=== PATIENT | male | born 1935 | race Asian ===

== ENCOUNTER 2019-06-02 11:55 | Day surgery (SDC) | payer MEDICARE, BC ==
[2019-06-02] MEDS ORDERED: Acetaminophen 500 MG TAB PO SCH (13:00)
[2019-06-02] MEDS ORDERED: diphenhydrAMINE 25 MG CAP PO SCH (13:15)
[2019-06-02 16:19] VITALS: TEMP 97.5
[2019-06-02 16:25] VITALS: BP 165/72
[2019-06-02 17:23] LABS: #Eosinphils 0.2 thou/uL (0.0-0.7); #Lymphocytes 0.9 thou/uL (1.20-3.40); #Monocytes 0.5 thou/uL (0.11-0.59); #Neutrophils 3.6 thou/uL (1.40-6.50); %Basophils 0.6 % (0.0-1.0); %Eosinophils 3.1 % (0.0-10.0); %Lymphocytes 16.6 % (21.0-51.0); %Monocytes 9.9 % (0.0-10.0); %Neutrophils 69.8 % (42.0-75.0); Anisocytosis SLIGHT = 6-15 cells (100X) (0-5/hpf); Hemoglobin 7.8 g/dL (14.0-18.0); Hypochromia SLIGHT = 6-15 cells (100X) (0-5/hpf); MDiff Complete? YES; Mean Corpuscular HGB CONC 31.8 g/dL (32.0-36.0); Mean Corpuscular Hemoglobin 34.2 pg (27.0-31.0); Mean Platelet Volume 10.2 fL (7.4-10.4); Platelet Count 68 thou/uL (130-400); Platelet Morphology Comment Appears Decreased; Poikilocytosis SLIGHT = 6-15 cells (100X) (0-5/hpf); RBC Distribution Width 24.6 % (11.5-14.5); Red Blood Cell (RBC) Count 2.26 mill/uL (4.70-6.10); White Blood Cell (WBC) Count 5.2 thou/uL (4.8-10.8)
== END 2019-06-02 16:40 | disposition home or self-care (01) ==
LOC: ONC/OP 11:55
PROVIDERS: ATTEND Internal Medicine Hematology & Oncology
PROC: 30233N1 Transfusion of Nonautologous Red Blood Cells into Peripheral Vein, Percutaneous Approach (ICD-10-PCS; principal; 2019-06-02)
DX: D64.9 Anemia, unspecified (principal); D69.6 Thrombocytopenia, unspecified
CPT/HCPCS: 36430; 80053; 82248; 83615; 83883; 84100; 84165; 84550; 85025; 86850; 86900; 86901; P9016; Q0163

== ENCOUNTER 2019-06-10 09:46 | Observation (INO) | payer MEDICARE, BC ==
--- NOTE | 2019-06-10 10:50 | RAD ---
PORTABLE CHEST 1 VIEW: Date: 06/10/19 Time: 1025 hours HISTORY: Shortness of breath. FINDINGS/IMPRESSION: Comparison made with exam of 03/05/13. Right-sided Port-A-Cath is again seen. The heart is enlarged. The aorta is tortuous. There are bibasi lar opacities with accompanying pleural effusions. No pneumothoraces are noted. POS: OFF
[2019-06-10 11:59] LABS: #Eosinphils 0.1 thou/uL (0.0-0.7); #Lymphocytes 0.7 thou/uL (1.20-3.40); #Monocytes 0.4 thou/uL (0.11-0.59); #Neutrophils 4.5 thou/uL (1.40-6.50); %Basophils 0.2 % (0.0-1.0); %Eosinophils 1.6 % (0.0-10.0); %Lymphocytes 12.2 % (21.0-51.0); %Monocytes 7.6 % (0.0-10.0); %Neutrophils 78.4 % (42.0-75.0); Hemoglobin 8.1 g/dL (14.0-18.0); Mean Corpuscular HGB CONC 32.6 g/dL (32.0-36.0); Mean Corpuscular Hemoglobin 35.8 pg (27.0-31.0); Mean Platelet Volume 9.6 fL (7.4-10.4); Platelet Count 64 thou/uL (130-400); RBC Distribution Width 24.2 % (11.5-14.5); Red Blood Cell (RBC) Count 2.27 mill/uL (4.70-6.10); White Blood Cell (WBC) Count 5.8 thou/uL (4.8-10.8)
[2019-06-10 12:24] LABS: ALT (SGPT) Less than 7 U/L (8-55); AST (SGOT) 18 U/L (5-34); Albumin 3.5 g/dL (3.4-4.8); Alkaline Phosphatase 95 U/L (40-150); Anion Gap 15 mmol/L (10-20); BUN (Urea Nitrogen) 69 mg/dL (8.4-25.7); Bilirubin, Total 0.7 mg/dL (0.2-1.2); Calc. Creatinine Clearance 0 mL/min (70-130); Calcium 9.2 mg/dL (7.8-10.44); Carbon Dioxide 30 mmol/L (23-31); Chloride 96 mmol/L (98-107); Estimated GFR-MDRD 8; Globulin 2.5 g/dL (2.4-3.5); Glucose 112 mg/dL (83-110); Potassium 4.8 mmol/L (3.5-5.1); Sodium 136 mmol/L (136-145)
[2019-06-10 12:25] LABS: Anisocytosis MODERATE=16-30 cells (100X) (0-5/hpf); MDiff Complete? YES; Platelet Morphology Comment Appears Decreased; Polychromasia MODERATE = 3-4 cells (100X) (0-2/hpf); Schistocytes SLIGHT = 2-5 cells (100X) (0-1/hpf)
--- NOTE | 2019-06-10 13:09 | PDOC.FPRHP ---
- History of Present Illness Chief Complaint: Dyspnea History of Present Illness: Pt is a 83yo male w/ pmhx of ESRD and multiple myeloma who lives in assisted living at [facility] presented to the ED with new onset dyspnea/orthopnea. Pt and daughter in law reported that around 0400 this am he started to become short of breath while laying in bed. This continued to last through the morning , exacerbated by laying down and with any exertion. Both daughter and staff felt the pt's legs were more swollen then normal so they took him here for further evaluation. Pt denies experiencing any fever, chills, cough, or recent illness. His only other complaint at this time is feeling more tired. Pt's daughter in law, who is a physician, reports he has recently developed the "dwindles" over the past few months with a slightly decreased appetite, mood, and energy level. Nephrology physician is Dr. Melendez. Pt was supposed to get dialysis today (Sat,, Th-left AV fistula) but missed it due to being in the ED. Denies any recent complications with dialysis. Pt also has a history of multiple myeloma. A week ago he was transfused for a Hgb below 7, today his hgb was 8.1. Oncology physician is Dr. Stoll - Allergies/Adverse Reactions Allergies Allergy/AdvReac Type Severity Reaction Status Date / Time No Known Allergies Allergy Verified 06/10/19 16:25 - Home Medications Medication Instructions Recorded Confirmed Type Acyclovir 400 mg PO DAILY 06/10/19 06/10/19 History Amlodipine Besylate/Valsartan 1 tab PO HS 06/10/19 06/10/19 History [Amlodipine-Valsartan 10-320 mg] Aspirin [Marcela Chewable] 81 mg PO DAILY 06/10/19 06/10/19 History Calcium Carbonate [Tums] 500 mg PO BID-WM 06/10/19 06/10/19 History Carbidopa/Levodopa [Sinemet] 25 mg PO BID 06/10/19 06/10/19 History Carvedilol Phosphate [Coreg CR] 40 mg PO DAILY 06/10/19 06/10/19 History Cholecalciferol (Vitamin D3) 1,000 unit PO DAILY 06/10/19 06/10/19 History [Vitamin D] Finasteride [Proscar] 0.5 tab PO DAILY 06/10/19 06/10/19 History Rosuvastatin [Crestor] 10 mg PO DAILY 06/10/19 06/10/19 History Sevelamer HCl 800 mg PO DAILY 06/10/19 06/10/19 History Terazosin HCl 2 mg PO DAILY 06/10/19 06/10/19 History hydrALAZINE [Apresoline] 25 mg PO BID 06/10/19 06/10/19 History - History PMHx: MM in remission, ESRD on HD //Sun, HTN well controlled, BPH PSHx: L fistula, Mediport 2013, Partial colectomy, tonsillectomy FHx: No pertinent family history Social: Lives in assisted living with . Wheelchair dependent, requires assistance with transfers. No tobacco, alcohol, - Review of Systems General: reports: weight/appetite/sleep changes (daughter reports slightly decreased appetite over past few months), fatigue. denies: fever/chills Eyes: denies: vision changes ENT: denies: nasal congestion Respiratory: reports: shortness of breath. denies: cough, congestion Cardiovascular: reports: edema. denies: chest pain, palpitation Gastrointestinal: denies: nausea, vomiting, diarrhea, abdominal pain, GI bleeding Genitourinary: denies: incontinence, dysuria Musculoskeletal: denies: pain, arthritis/arthralgias Neurological: reports: weakness, other (denies dizziness) Psychological: reports: depression (daughter notes recent "dwindles" w/ mildly decreased mood) - Vital signs BP: [] HR: [] RR: [] Tmax: [] Pox: []% on [] Wt: [] - Physical Exam Constitutional: NAD -Constitutional: sleepy but easily arousible HEENT: normocephalic and atraumatic, PERRLA, conjunctiva clear, no scleral icterus Neck: supple, FROM, no JVD Chest: no lesions Heart: RRR, normal S1/S2 -Heart: 2/6 soft ejection murmur heard at mitral and tricuspid posts 2+ pitting edema bilaterally to LE Lungs: good air movement, no wheezing -Lungs: Diffuse fine crackles in all smith Abdomen: soft, non-tender, bowel sounds present Musculoskeletal: normal structure, normal tone, ROM grossly normal Neurological: no focal deficit, CN II-XII intact Skin: capillary refill <2 seconds, no jaundice -Skin: Senile purpura to upper and lower extremities Psychiatric: normal mood and affect, good judgment and insight, intact recent and remote memory FMR H&P: Results - Labs Result Diagrams: 06/10/19 10:56 06/10/19 10:56 Lab results: WBC 5.8 thou/uL (4.8-10.8) 06/10/19 10:56 Hgb 8.1 g/dL (14.0-18.0) L 06/10/19 10:56 Hct 24.9 % (42.0-52.0) L 06/10/19 10:56 MCV 110.0 fL (78.0-98.0) H 06/10/19 10:56 Plt Count 64 thou/uL (130-400) L 06/10/19 10:56 Neutrophils % 78.4 % (42.0-75.0) H 06/10/19 10:56 Sodium 136 mmol/L (136-145) 06/10/19 10:56 Potassium 4.8 mmol/L (3.5-5.1) 06/10/19 10:56 Chloride 96 mmol/L (98-107) L 06/10/19 10:56 Carbon Dioxide 30 mmol/L (23-31) 06/10/19 10:56 BUN 69 mg/dL (8.4-25.7) H 06/10/19 10:56 Creatinine 6.68 mg/dL (0.7-1.3) H 06/10/19 10:56 Glucose 112 mg/dL (83-110) H 06/10/19 10:56 Calcium 9.2 mg/dL (7.8-10.44) 06/10/19 10:56 Total Bilirubin 0.7 mg/dL (0.2-1.2) 06/10/19 10:56 AST 18 U/L (5-34) 06/10/19 10:56 ALT Less than 7 U/L (8-55) L 06/10/19 10:56 Alkaline Phosphatase 95 U/L (40-150) 06/10/19 10:56 B-Natriuretic Peptide 978.8 pg/mL (0-100) H 06/10/19 10:56 Serum Total Protein 6.0 g/dL (5.8-8.1) 06/10/19 10:56 Albumin 3.5 g/dL (3.4-4.8) 06/10/19 10:56 - EKG Interpretation EK lead EKG interpreted by Emergency Department Physician at time of study, 12 lead EKG shows normal sinus rhythm, Rate (beats per minute): 78, Interpretation : normal EKG, Conduction normal, ST segments normal, T waves normal, [place] normal , Clinical impression: Normal EKG. - Radiology Interpretation Chest x-ray Status: image reviewed by me, report reviewed by me FMR H&P: A/P - Problem List (1) End stage chronic kidney disease Current Visit: Yes Status: Acute Code(s): N18.6 - END STAGE RENAL DISEASE (2) Shortness of breath on exertion Current Visit: Yes Status: Acute Code(s): R06.02 - SHORTNESS OF BREATH (3) Anemia Current Visit: Yes Status: Acute Code(s): D64.9 - ANEMIA, UNSPECIFIED Qualifiers: Anemia type: due to chronic kidney disease Chronic kidney disease stage: on chronic dialysis Qualified Code(s): N18.6 - End stage renal disease; D63.1 - Anemia in chronic kidney disease; Z99.2 - Dependence on renal dialysis (4) Multiple myeloma Current Visit: Yes Status: Acute Code(s): C90.00 - MULTIPLE MYELOMA NOT HAVING ACHIEVED REMISSION Qualifiers: Multiple myeloma remission status: unspecified Qualified Code(s): C90.00 - Multiple myeloma not having achieved remission (5) BPH (benign prostatic hyperplasia) Current Visit: Yes Status: Acute Code(s): N40.0 - BENIGN PROSTATIC HYPERPLASIA WITHOUT LOWER URINRY TRACT SYMP Qualifiers: Lower urinary tract symptom detail: straining on urination (6) HTN (hypertension) Current Visit: Yes Status: Acute Code(s): I10 - ESSENTIAL (PRIMARY) HYPERTENSION - Plan Shortness of breath - exertional and orthopnea New onset for pt this morning No previous history of CHF, difficult to determine whether fluid overload is 2/ 2 to complication with dialysis vs cardiogenic in nature -BNP 978 and 2+ pitting edema in bilateral LE -Troponins negative x3 -Echo ordered -No diuresis due to pt ESRD and minimal ability to create urine -Labs and clinical history were not suggestive of infectious etiology End stage renal disease Dialysis was scheduled for today but missed due to ED visit Renal function panel with no electrolyte derangements -Sat,, dialysis pt through left AV fistula -Consulted Dr. Melendez, will perform inpt dialysis today, he feels this will likely help with pts fluid overload Multiple Myeloma -courtesy call to Dr. Stoll, oncology, by request of family, message was left at his office -pt is currently stable in treatment per daughter Anemia Likely 2/2 to ESRD, was tranfused 1 week ago due to hgb <7 -Hgb 8.1, will continue to trend -Epoetin ordered pr Dr. Melendez Hypertension -Will restart pt carvedilol, amlodipine-valsartan, and hydralazine BPH -restart home finasteride and terazosin Condition: Stable Code status: DNAR Fluids: None Diet: Renal - fluid restriction 1800 VTE: not indicated due to thrombocytopenia Dispo: Admit to tele obs following dialysis today, will continue assessment for new onset CHF FMR H&P: Upper Level - Pertinent history 83 yo M with PMH ESRD on HD //Sun, HTN, MM presents with SOB that began and has worsened since last night. Did not get dialysis today. Noted to sat 91% on RA when typically sats around 96%, per daughter in law. Does not require supplemental O2. Did not get dialyzed today. He reports feeling tired but denies current SOB in ED. Denies any pain. He did have blood transfusion last Sunday for anemia. Daughter in law notes he has had decreased appetite and mobility over the past several months. Now wheelchair dependent. - Pertinent findings General: Tired, NAD Heart: RRR, no murmur Lungs: decreased lung sounds lower lobes, mild crackles, no wheeze Ext: 1+ pitting edema BLE Labs: BNP 978 Hgb 8.1 Platelets 64 EKG: NSR, no ischemic changes CXR: enlarged heart, bibasilar opacities w/ pleural effusion - Plan Date/Time: 06/10/19 1309 Fluid overload without diagnosis of CHF - CXR and clinical picture consistent. No tachycardia or tachypnea. - Concern for CHF with BNP 978, will order echo. No prior echo found in chart. - Trop neg, no EKG changes - No documented hypoxia <90%, pt was placed on supplemental O2. Will wean O2 as tolerated - Al consulted for dialysis ESRD on HD //S - consult Dr. Melendez, his principal software engineer for dialysis management - continue home renvela Chronic anemia - s/p 1 unit prbc last week - stable at 8.1 today, continue to monitor Thrombocytopenia - Platelets 64 today, continue to monitor HTN - Continue home carvedilol, hydralazine, amlodipine-valsartan - Hydralazine is held prior to dialysis treatments HLD - Continue home crestor, aspirin 81mg BPH - Continue home finasteride Dementia - Continue home carbidopa-levodopa Multiple myeloma - Reportedly in remission - Will let Dr. Stoll know patient is hospitalized Code: DNR Ppx: will not give heparin for ppx considering thrombocytopenia Dispo: admit to telemetry for observation, expected stay <2 midnights IClair DO, have evaluated this patient and agree with findings/plan as outlined by web development intern resident. Pertinent changes/additions are listed here.
[2019-06-10 14:45] LABS: Troponin I Less than 0.010 ng/mL (< 0.028)
[2019-06-10] MEDS ORDERED: Acetaminophen 325 MG TAB PO PRN (15:42)
--- NOTE | 2019-06-10 17:28 | PDOC.EVN ---
Event Note - Event Note Event Note: Date/Time: 06/10/19 5560 I personally evaluated the patient and discussed the management with Dr. Handy I agree with the History, Examination, Assessment and Plan documented above with any addition or exceptions noted below - 83 yo male with h/o HTN, ESRD on HD, multiple myeloma, HLD presented with acute onset of SOB since last night. He was awakened from sleep by the SOB. Denies any CP, cough, fever/chills, URI symptoms. (+) fatigue, and decreased appetite over the last several months. Daughter in law also reports increased pedal edema today. No recent changes to diet or medications. No prior h/o CHF. PMH/PSH/Meds/SH reviewed and agree with resident's documentation. T97.2 P77 BP 176/74 RR16 Exam repeated by me and agree with resident's findings. Labs: WBC=5.8, H/H=8.1/24.9, Plt=64, Bm=008, K= 4.8, Cl=96, CO2=30, BUN/Cr=69/6.69, Yynk=756, PZE=343.8, CXR- b/l pleural effusions and cardiomegaly, trop I<0.010. A/P: 1) New onset dyspnea- will check echo; may be related to volume overload and being due for HD. 2) ESRD- nephrology consulted to coordinate HD. 3) HTN- resume home meds; continue to monitor, 4) Thrombocytopenia- at baseline; continue to monitor ; will avoid lovenox/heparin.
[2019-06-10] MEDS ORDERED: EPOETIN ALFA-EPBX (ESRD) 4,000 UNIT/ML VIAL SC SCH (18:00)
[2019-06-10 18:08] LABS: Troponin I Less than 0.010 ng/mL (< 0.028)
[2019-06-10 18:34] VITALS: BMI 24.0
--- NOTE | 2019-06-10 19:05 | CON ---
DATE OF CONSULTATION: 06/10/2019 HISTORY OF PRESENT ILLNESS: Mr. Valentin is an 83-year-old Welsh-Y[place]i with known history of ESRD and was admitted for generalized malaise and weakness. He was also found to be short of breath and chest x-ray suggested CHF. He was also undergoing leg edema at the same time. We are now consulted for emergent hemodialysis as well for his maintenance hemodialysis. REVIEW OF SYSTEMS: No chest pain. Positive for shortness of breath. Positive for leg edema. No nausea. No vomiting. No diarrhea. No constipation. Positive for dry cough. No syncopal episode. No fever or chills. No chest pain. No gross hematuria. No dysuria. No melena. No hematemesis. MEDICATIONS: 1. Acyclovir 400 mg daily. 2. Amlodipine/valsartan 10/320 once daily. 3. Aspirin 81 mg daily. 4. Calcium carbonate 500 mg p.o. b.i.d. 5. Sinemet one tab p.o. b.i.d. 6. Carvedilol 40 mg ER tab daily. 7. Vitamin D 1000 international units. 8. Finasteride 0.5 mg daily. PAST MEDICAL HISTORY: 1. Multiple myeloma. 2. ESRD, on maintenance hemodialysis. 3. Longstanding hypertension. 4. Parkinson disease. 5. BPH. PAST SURGICAL HISTORY: 1. Status post AV fistula placement. 2. Status post MediPort placement. 3. Status post partial colectomy. 4. Status post colonoscopy. 5. Status post tonsillectomy. SOCIAL HISTORY: The patient lives with his in assisted living. Two children. Education, high school. 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 No drug abuse. Status post blood transfusion. Currently, no smoking. No alcohol intake. Sedentary lifestyle. ALLERGIES: NO KNOWN DRUG ALLERGIES. TRAUMA: None. IMMUNIZATION: Up-to-date. HOSPITALIZATION: Please see past medical history. FAMILY HISTORY: No family history of ESRD. PHYSICAL EXAMINATION: VITAL SIGNS: Blood pressure is 176/74, heart rate 78, respiratory rate 16, temperature 97.2, and pulse ox 95%. GENERAL: Awake, alert, supine, comfortable, not in overt distress. SKIN: Adequate turgor. HEENT: Slightly pale conjunctivae. Anicteric sclerae. No neck mass. No carotid bruits. No JVD. CHEST: No deformities. LUNGS: Clear breath sounds. HEART: Normal sinus rhythm. No murmurs, no gallops, no rubs. ABDOMEN: Globular, soft, nontender. No masses. EXTREMITIES: No edema. No deformities. LABORATORY DATA: Laboratories of June 10, 2019; white count 5.8, hemoglobin 8.1. Sodium 136, potassium 4.8, chloride 96, carbon dioxide 30, BUN 69, creatinine 6.68, glucose 112, ALT less than 7, and BNP is 978. Troponin-I less than 0.010. Chest x-ray shows CHF. ASSESSMENT AND PLAN: 1. Multiple myeloma - currently in remission, followed up by Dr. Stoll. 2. End-stage renal disease, stable. We will continue current Sunday, , and Sunday dialysis. Due to the volume overload, we are doing an emergent hemodialysis with this patient. We will attempt 2.5 L fluid removal only as tolerated by the patient. We will continue current hemodialysis regimen. 3. Anemia. Start weekly Epogen 7500 units subcu weekly. 4. Overall agree with current management. The patient is being ruled out for myocardial infarction. Job ID: [id number] [facility]
[2019-06-10 19:26] LABS: HBSAg Index 0.34 S/CO (0-0.99); Hep B Surf Ag Non-Reactive S/CO (NonReactive)
[2019-06-10] MEDS ORDERED: Valsartan 80 MG TAB PO SCH (21:00)
[2019-06-10] MEDS ORDERED: Amlodipine 10 MG TAB PO SCH (21:00)
[2019-06-10] MEDS ORDERED: Non-Formulary Item 1 EACH (Amlodipine Besylate/Valsartan [Amlodipine-Valsartan 10-320 Mg] PO SCH (21:00)
[2019-06-10] MEDS: Carbidopa/Levodopa 25-100 mg Tablet PO SCH (21:24)
[2019-06-10] MEDS: hydrALAZINE 25 MG TAB PO SCH (21:24)
[2019-06-11 05:32] LABS: #Eosinphils 0.2 thou/uL (0.0-0.7); #Lymphocytes 0.8 thou/uL (1.20-3.40); #Monocytes 0.4 thou/uL (0.11-0.59); #Neutrophils 3.6 thou/uL (1.40-6.50); %Basophils 0.5 % (0.0-1.0); %Eosinophils 3.3 % (0.0-10.0); %Lymphocytes 15.3 % (21.0-51.0); %Monocytes 8.7 % (0.0-10.0); %Neutrophils 72.2 % (42.0-75.0); Mean Corpuscular HGB CONC 32.4 g/dL (32.0-36.0); Mean Corpuscular Hemoglobin 36.4 pg (27.0-31.0); Mean Platelet Volume 9.2 fL (7.4-10.4); Platelet Count 65 thou/uL (130-400); RBC Distribution Width 23.8 % (11.5-14.5); Red Blood Cell (RBC) Count 2.21 mill/uL (4.70-6.10); White Blood Cell (WBC) Count 4.9 thou/uL (4.8-10.8)
[2019-06-11 05:46] LABS: Anion Gap 14 mmol/L (10-20); BUN (Urea Nitrogen) 45 mg/dL (8.4-25.7); Calc. Creatinine Clearance 10 mL/min (70-130); Calcium 8.8 mg/dL (7.8-10.44); Carbon Dioxide 31 mmol/L (23-31); Chloride 99 mmol/L (98-107); Estimated GFR-MDRD 12; Glucose 99 mg/dL (83-110); Potassium 4.6 mmol/L (3.5-5.1); Sodium 139 mmol/L (136-145)
--- NOTE | 2019-06-11 06:44 | PDOC.FM ---
- Subjective Subjective: Pt is much improved this morning after dialysis. Slept well without acute events overnight. States SOB as completely resolved. No CP, n/v/d/c, fever/ chills. He is eager to go home today after the Echo. - Objective MAR Reviewed: Yes Vital Signs & Weight: Vital Signs (12 hours) Temp Pulse Resp BP BP Pulse Ox 06/11/19 04:16 98.6 F 76 18 124/59 L 98 06/10/19 21:24 80 169/73 H 06/10/19 20:30 98.7 F 80 20 169/73 H 98 06/10/19 20:07 98.7 F 80 20 169/73 H 98 Weight Weight 56.681 kg I&O: 06/09/19 06/10/19 06/11/19 06:59 06:59 06:59 Intake Total 135 Output Total 3020 Balance -2885 Result Diagrams: 06/11/19 04:24 06/11/19 04:25 Phys Exam - Physical Examination Constitutional: NAD (pleasant, speaking in full sentences.) HEENT: PERRLA, moist MMs Neck: supple Respiratory: no wheezing, no rales, no rhonchi, clear to auscultation bilateral Cardiovascular: RRR, no rub 2/6 systolic ejection murmur Gastrointestinal: soft, non-tender, no distention, positive bowel sounds 1+ pitting edema of bilateral lower ext, no TTP Neurological: non-focal, moves all 4 limbs Psychiatric: normal affect, A&O x 3 Dx/Plan (1) Shortness of breath on exertion Code(s): R06.02 - SHORTNESS OF BREATH Status: Acute (2) Anemia Code(s): D64.9 - ANEMIA, UNSPECIFIED Status: Chronic Qualifiers: Anemia type: due to chronic kidney disease Chronic kidney disease stage: on chronic dialysis Qualified Code(s): N18.6 - End stage renal disease; D63.1 - Anemia in chronic kidney disease; Z99.2 - Dependence on renal dialysis (3) End stage chronic kidney disease Code(s): N18.6 - END STAGE RENAL DISEASE Status: Chronic (4) HTN (hypertension) Code(s): I10 - ESSENTIAL (PRIMARY) HYPERTENSION Status: Chronic (5) Multiple myeloma Code(s): C90.00 - MULTIPLE MYELOMA NOT HAVING ACHIEVED REMISSION Status: Chronic Qualifiers: Multiple myeloma remission status: in remission Qualified Code(s): C90.01 - Multiple myeloma in remission - Plan Plan: Pt is a 83yo male w/ pmhx of ESRD and multiple myeloma in remission who lives in assisted living at [facility] who presented with dyspnea and volume overload. Shortness of breath - exertional and orthopnea - New onset for at admission. No previous history of CHF, likely 2/2 volume overload, resolved completely after dialysis. - BNP 978 and pitting edema improved this AM after dialysis. Lungs CTAB. - Troponins negative x3 - Echo pending today - Labs and clinical history were not suggestive of infectious etiology - Currently on 2L NC and satting well overnight, will wean to RA as tolerated today. End stage renal disease - Dialysis scheduled for T, , Sat. - Renal function panel with no electrolyte derangements - Consulted Dr. Melendez, performed inpt emergent dialysis yesterday and then continue on normal regime. Plans for epogen weekly. Appreciate recs. Multiple Myeloma - courtesy call to Dr. Stoll, oncology, by request of family, message was left at his office - pt is currently stable in treatment per daughter Macrocytic Anemia - Likely 2/2 to ESRD, was tranfused 1 week ago due to hgb <7 - Hgb 8.1, will continue to trend - Epoetin ordered pr Dr. Melendez - Will check B12 this AM. Hypertension - Continue home carvedilol, amlodipine-valsartan, and hydralazine BPH - Continue home finasteride and terazosin Condition: Stable Code status: DNAR Fluids: None Diet: Renal - fluid restriction 1800 VTE: not indicated due to thrombocytopenia Dispo: Echo pending to evaluated for new onset CHF. Pending results and clinical improvement, plan for discharge today or tomorrow.
--- NOTE | 2019-06-11 08:47 | PRG ---
DATE OF SERVICE: 06/11/2019 SUBJECTIVE: Mr. Valentin is an 83-year-old [place]ian-[place]ian with ESRD, who was admitted for congestive heart failure. He underwent emergent hemodialysis. This morning, he is breathing better. I had a long discussion with the patient and his son regarding extending his dialysis time by 15 minutes. He usually receives dialysis for 2 hours and 30 minutes. I plan to extend his times a week and remove enough fluid with them. He is amenable with this. The patient voices no other complaints. OBJECTIVE: VITAL SIGNS: Blood pressure 142/62, heart rate 71, respiratory rate 18, temperature 98.6, and pulse ox 99%. GENERAL: Noted to be awake, alert, comfortable, not in overt distress. SKIN: Adequate turgor. HEENT: He has pinkish conjunctivae. Anicteric sclerae. NECK: No neck mass. No carotid bruits. No JVD. LUNGS: Decreased breath sounds. HEART: Normal sinus rhythm. No murmur. No gallops. No rubs. ABDOMEN: Globular, soft, nontender. No masses. EXTREMITIES: No edema. No deformities. MEDICATIONS: Medications of June 11, 2019, reviewed. LABORATORY DATA: Laboratories of June 11, 2019; white count 4.9, hemoglobin 8. Sodium 139, potassium 4.6, chloride 99, carbon dioxide 31, BUN 45, creatinine 4.64, calcium is 8.8. Troponin I less than 0.010. ASSESSMENT AND PLAN: 1. Congestive heart failure, clinically much improved with fluid removal with dialysis. 2. End-stage renal disease, stable. We will continue current Sunday, , and Sunday dialysis. We will adjust his dialysis regimen. We will extend the time from 2 hours and 30 minutes to 2 hours and 45 minutes. 3. Anemia. We will continue current Epogen dosing. Currently, on 7500 units subcu q.week. 4. Agree with current management. Job ID: [id number]
[2019-06-11] MEDS ORDERED: Terazosin HCl 1 MG CAP PO SCH ×2 (09:00→21:00)
[2019-06-11] MEDS ORDERED: Acyclovir 400 mg Tablet PO SCH (09:00)
[2019-06-11] MEDS ORDERED: Sevelamer Carbonate 800 MG TAB PO SCH (09:00)
[2019-06-11] MEDS ORDERED: Carvedilol 6.25 MG TAB PO SCH (09:00)
[2019-06-11] MEDS ORDERED: Rosuvastatin 10 MG TAB PO SCH ×2 (09:00→21:00)
[2019-06-11] MEDS ORDERED: Finasteride 5 MG TAB PO SCH (09:00)
[2019-06-11] MEDS: Calcium Carbonate 500 MG ChewTAB PO SCH ×2 (09:26→17:23)
[2019-06-11] MEDS: hydrALAZINE 25 MG TAB PO SCH (09:27)
[2019-06-11] MEDS: Carbidopa/Levodopa 25-100 mg Tablet PO SCH (09:27)
--- NOTE | 2019-06-11 12:02 | PRG ---
DATE OF SERVICE: Mr. Valentin is an 83-year-old man with end-stage renal disease, on dialysis. He presented with some fluid overload and has already had a dialysis and looks and feels much better. We are awaiting the results of an echocardiogram, after which he can likely be discharged. Job ID: [id number]
[2019-06-11 15:52] VITALS: BP 147/64; TEMP 98.3
--- NOTE | 2019-06-11 19:39 | DIS ---
DATE OF ADMISSION: 06/10/2019 DATE OF DISCHARGE: 06/11/2019 RESIDENT: Tank Kenney MD ADMITTING ATTENDING: Sunshine Bocanegra MD DISCHARGE ATTENDING: Rishi العراقي MD CONSULTS: Dr. Melendez, Nephrology. PROCEDURES: 1. Echo - currently pending upon discharge. 2. Chest x-ray demonstrated cardiomegaly with bibasilar opacities with accompanying pleural effusions. 3. Urgent dialysis. 4. Echocardiogram - EF 55-60% with diastolic dysfunction. Bpehakuv-mf-kiyro tricuspid regurgitation. Elevated right ventricular systolic pressure. Large circumferential pericardial effusion without tamponade physiology. PRIMARY DIAGNOSIS: Shortness of breath due to volume overload. SECONDARY DIAGNOSES: 1. End-stage renal disease, on hemodialysis. 2. Multiple myeloma. 3. Chronic microcytic anemia. 4. Hypertension. 5. Benign prostatic hypertrophy. DISCHARGE MEDICATIONS: 1. Epoetin 7500 units subcutaneous every 7 days. 2. Tums 500 mg p.o. b.i.d. 3. Crestor 10 mg p.o. daily. 4. Terazosin 4 mg p.o. daily. 5. Sevelamer 800 mg p.o. t.i.d. 6. Hydralazine 25 mg p.o. b.i.d. 7. Proscar 5mg mg p.o. daily. 8. Coreg 40 mg p.o. daily. 9. Carbidopa-levodopa 25 mg p.o. b.i.d. 10. Aspirin 81 mg p.o. daily. 11. Amlodipine-valsartan 10 mg/320 mg p.o. at bedtime. 12. Acyclovir 400 mg p.o. b.i.d. 13. Cholecalciferol 1000 units p.o. daily. DISCONTINUED MEDICATIONS: None. HISTORY OF PRESENT ILLNESS AND HOSPITAL COURSE: Mr. Valentin is a pleasant 83-year -old male with a past medical history of end-stage renal disease, on hemodialysis, and multiple myeloma, who lives in assisted living at [facility], presented to the ED with new onset dyspnea and orthopnea. The patient reported that on the morning of admission, he became short of breath while lying in bed, and the shortness of breath had lasted throughout the morning, exacerbated by lying down with any exertion. The patient's [id number] noticed that the patient's legs were more swollen than normal and brought him to the emergency room for further evaluation. The patient denied any fevers, chills, cough, or recent illness, and does complain of general malaise. The patient's wvuoazwn-fc-oie, who is a family physician, did notice that the patient's energy has been low over the past few months with decreased appetite, mood, and activity level. The patient is known to Dr. Melendez and was supposed to get dialysis on the day of admission, but missed due to being in the emergency room. No recent complications of dialysis. The patient also has a history of multiple myeloma. He had transfusion of 1 unit of packed red blood cells a week ago when his hemoglobin fell below 7. On the day of admission, his hemoglobin was 8.1. His oncologist is Dr. Stoll, and a courtesy call was made to his office to make him aware of the patient's admission. The patient was admitted to the floor for further evaluation. Upon admission, Dr. Melendez was notified of the patient and urgent dialysis was undergone. The patient's initial electrolytes were within normal limits and repeated status post dialysis and also were reassuring. A 12-lead EKG was taken , that showed no acute changes. His initial BNP was 978, and he had 2+ pitting edema of the bilateral lower extremities. Troponins were trended and negative, and an echocardiogram was ordered. The patient received dialysis on the evening of admission. Overnight, the patient did well and was able to sleep well without any acute events overnight. He was placed on telemetry without any acute events as well. On the morning of discharge, the patient was doing well and actually stated that he felt better than his baseline. Dr. Melendez noted that a higher volume was pulled off on his dialysis and that his dialysis would be adjusted in the future. Dr. Melendez recommended continuing his routine dialysis regimen of Tuesdays, , and Saturdays with next dialysis being tomorrow. The patient denied any chest pain, shortness of breath, fevers, or chills on the morning of admission. The patient was initially placed on 2 L nasal cannula and was able to be weaned to room air without any difficulty. At the time of discharge, his echocardiogram had been taken; however, the report had not been received, however the results were avaliable at the time of this dictation and are as above. The results were discussed with pt's [id number] and they will f.u with PCP and possible electrical continuity tester. It was then decided the patient could be discharged home to attend his outpatient dialysis tomorrow and follow up with his pet resort concierge and primary care physician as an outpatient. The patient and family at bedside voiced agreement and understanding of discharge plan and were eager to go home. Any alarm symptoms which should warrant return to medical care were discussed and the patient voiced understanding. The patient was then discharged home to follow up as directed. DISPOSITION: Stable. DISCHARGE INSTRUCTIONS: 1. Location, home. 2. Diet: Renal, high protein. 3. Activity, as tolerated. 4. Followup: The patient should follow up with his primary care physician within 1 week as well as have a repeat echo or cadiologist follow up as appropriate. The patient also follow up with a pet resort concierge and outpatient dialysis as previously directed. Job ID: [id number] MTDD
--- NOTE | 2019-06-17 13:30 | EKG ---
Test Reason : Blood Pressure : / mmHG Vent. Rate : 078 BPM Atrial Rate : 078 BPM P-R Int : 158 ms QRS Dur : 086 ms QT Int : 408 ms P-R-T Axes : 024 021 055 degrees QTc Int : 465 ms Normal sinus rhythm Normal ECG Confirmed by LILY AVINA DO ([id number]), field map editor KIRAN LUNDBERG ([id number]) on 06/17/2019 1:29:43 PM Referred By: Confirmed By:LILY AVINA DO
== END 2019-06-11 17:46 | disposition home or self-care (01) ==
LOC: ERS 09:46 → 2NO 15:45
PROVIDERS: ADMIT Family Medicine; ATTEND Family Medicine
DX: E87.70 Fluid overload, unspecified (principal); I13.2 Hypertensive heart and chronic kidney disease with heart failure and with stage 5 chronic kidney disease, or end stage renal disease; N18.6 End stage renal disease; I50.9 Heart failure, unspecified; D63.1 Anemia in chronic kidney disease; C90.01 Multiple myeloma in remission; N40.0 Benign prostatic hyperplasia without lower urinary tract symptoms; D69.6 Thrombocytopenia, unspecified; E78.5 Hyperlipidemia, unspecified; G20 Parkinson's disease; F02.80 Dementia in other diseases classified elsewhere, unspecified severity, without behavioral disturbance, psychotic disturbance, mood disturbance, and anxiety; Z66 Do not resuscitate; Z99.2 Dependence on renal dialysis; Z99.3 Dependence on wheelchair; Z79.82 Long term (current) use of aspirin; Z79.899 Other long term (current) drug therapy; Z90.49 Acquired absence of other specified parts of digestive tract; Z98.890 Other specified postprocedural states
CPT/HCPCS: 71045; 80048; 80053; 82607; 82962; 83880; 84484 ×2; 85025 ×2; 86850; 86900; 86901; 87340; 93005; 93306; 96372; 99285; G0378 ×3; Q5105; 36415; 36416; 90935; G0257; J1642